=== PATIENT | female | born 1945 | race Caucasian/White ===

== ENCOUNTER 2018-04-29 15:01 | Emergency (ER) | payer MEDICARE, OTHER ==
--- NOTE | 2018-04-29 16:17 | ER Document Report ---
ED Medical Screen (RME) - General Chief Complaint: Insect Bite Stated Complaint: POSSIBLE INSECT BITE Time Seen by Provider: 04/29/18 16:09 Notes: RAPID MEDICAL EVALUATION DISCLOSURE I have seen this patient as part of a Rapid Medical Evaluation and, if applicable, placed any initially appropriate orders. The patient will be seen and fully evaluated, including a full history and physical exam, by a provider ( in Main ED or Fast Track) when a room becomes available. 73-year-old female here with complaints of skin redness to her legs and left arm ongoing for the past few days. She reports being bitten by a spider and initially the cellulitis was isolated to the right leg however it has spread to the left leg and the left arm. She believes she was bitten multiple times. These areas are draining clear discharge. She went to an urgent care facility yesterday and was prescribed Keflex and Bactrim and she was told that if it did not get better within 24 hours that she should go to an emergency department. She is here for this reason. Denies any prior history of MRSA cellulitis. Denies fevers chills. EXAM Multiple areas of mild to moderate cellulitis on the BLEs and LUE TRAVEL OUTSIDE OF THE [place] IN LAST 30 DAYS: No - Related Data Allergies/Adverse Reactions: Penicillins Allergy (Verified 04/29/18 15:02) Quinolones Allergy (Verified 04/29/18 15:02) Physical Exam - Vital signs Vitals: Temp Pulse Resp BP Pulse Ox 97.8 F 65 18 102/68 90 L 04/29/18 15:06 04/29/18 15:06 04/29/18 15:06 04/29/18 15:06 04/29/18 15:06 Course - Vital Signs Vital signs: Temp Pulse Resp BP Pulse Ox 97.8 F 65 18 102/68 90 L 04/29/18 15:06 04/29/18 15:06 04/29/18 15:06 04/29/18 15:06 04/29/18 15:06
[2018-04-29] MEDS ORDERED: CLINDAMYCIN 600 MG/D5W RTU 600 MG/50 ML RTUPB IV ONE (16:38)
--- NOTE | 2018-04-29 16:41 | ER Document Report ---
ED Skin Rash/Insect Bite/Abscs - General Chief Complaint: Insect Bite Stated Complaint: POSSIBLE INSECT BITE Time Seen by Provider: 04/29/18 16:09 Notes: Patient is a 73-year-old female who presents with diffuse erythematous rash on bilateral lower extremities and her left elbow. She went to urgent care yesterday and was started on Keflex and Bactrim after she was bitten by multiple spiders that she saw and killed. The rash is pruritic and she has taken Benadryl twice to help with the itchiness. Patient denies fevers, numbness, tingling, difficulty breathing or sores in her mouth. TRAVEL OUTSIDE OF THE [place] IN LAST 30 DAYS: No - Related Data Allergies/Adverse Reactions: Penicillins Allergy (Verified 04/29/18 15:02) Quinolones Allergy (Verified 04/29/18 15:02) Past Medical History - General Information source: Patient - Social History Smoking Status: Current Every Day Smoker Frequency of alcohol use: None Drug Abuse: None Family History: Reviewed & Not Pertinent Patient has suicidal ideation: No Patient has homicidal ideation: No Renal/ Medical History: Denies: Hx Peritoneal Dialysis Review of Systems - Review of Systems Notes: REVIEW OF SYSTEMS: CONSTITUTIONAL: -fevers, -chills EENT: -eye pain, -difficulty swallowing, -nasal congestion CARDIOVASCULAR: -chest pain, -syncope. RESPIRATORY: -cough, -SOB GASTROINTESTINAL: -abdominal pain, -nausea, -vomiting, -diarrhea GENITOURINARY: -dysuria, -hematuria MUSCULOSKELETAL: -back pain, -neck pain SKIN: +rash HEMATOLOGIC: -easy bruising or bleeding. LYMPHATIC: -swollen, enlarged glands. NEUROLOGICAL: -altered mental status or loss of consciousness, -headache, - neurologic symptoms PSYCHIATRIC: -anxiety, -depression. ALL OTHER SYSTEMS REVIEWED AND NEGATIVE. Physical Exam - Vital signs Vitals: Temp Pulse Resp BP Pulse Ox 97.8 F 65 18 102/68 90 L 04/29/18 15:06 04/29/18 15:04/29/18 15:04/29/18 15:04/29/18 15:06 - Notes Notes: PHYSICAL EXAMINATION: GENERAL: Well-appearing, well-nourished and in no acute distress. HEAD: Atraumatic, normocephalic. EYES: Pupils equal round and reactive to light, extraocular movements intact, sclera anicteric, conjunctiva are normal. ENT: nares patent, oropharynx clear without exudates. Moist mucous membranes. NECK: Normal range of motion, supple without lymphadenopathy LUNGS: Breath sounds clear to auscultation bilaterally and equal. No wheezes rales or rhonchi. HEART: Regular rate and rhythm without murmurs ABDOMEN: Soft, nontender, normoactive bowel sounds. No guarding, no rebound. No masses appreciated. EXTREMITIES: Normal range of motion, no pitting or edema. No cyanosis. NEUROLOGICAL: Cranial nerves grossly intact. Normal speech, normal gait. Normal sensory and motor exams. PSYCH: Normal mood, normal affect. SKIN: Multiple discrete erythematous areas over right lower extremity, small blister over right medial ankle. Course - Re-evaluation Re-evalutation: Pt with redness of her right lower leg after multiple spider bites that she saw. Some do appear to be worsening, despite Bactrim and Keflex. Will switch her to clindamycin. The wounds were demarcated and she understands strict return precautions. She is afebrile and has a normal WBC. No signs of necrotizing fasciitis or abscess at this time. Given very strict return precautions and she understands. - Vital Signs Vital signs: Temp Pulse Resp BP Pulse Ox 97.9 F 68 16 173/78 H 92 04/29/18 20:09 04/29/18 20:09 04/29/18 20:09 04/29/18 20:09 04/29/18 20:09 - Laboratory Result Diagrams: 04/29/18 16:45 04/29/18 16:45 Laboratory results interpreted by me: 04/29/18 04/29/18 16:45 16:45 Plt Count 138 L Eosinophils % 7.6 H BUN 34 H Discharge - Discharge Clinical Impression: Rash Cellulitis Qualifiers: Site of cellulitis: extremity Site of cellulitis of extremity: lower extremity Laterality: unspecified laterality Qualified Code(s): L03.119 - Cellulitis of unspecified part of limb Insect bite Qualifiers: Encounter type: initial encounter Qualified Code(s): W57.XXXA - Bitten or stung by nonvenomous insect and other nonvenomous arthropods, initial encounter Condition: Stable Disposition: HOME, SELF-CARE Additional Instructions: CELLULITIS: You have an infection of your skin and underlying soft tissues called cellulitis. This is due to bacteria, which can enter through any break in the skin, or even through an irritated hair follicle. Untreated, cellulitis will usually worsen. Antibiotics are required. Usually, warm packs or warm soaks, and elevation of the infected area are recommended. You should start getting better within 24 to 36 hours. Most infections respond quickly to the right medication. Follow-up care is important, however, to check for abscess (boil) formation, unsuspected foreign body, or resistant infection. If you develop fever, chills, or if the area of infection is becoming rapidly more swollen or painful, call the doctor at once. ANTIBIOTIC THERAPY: You have been given an antibiotic prescription. It's important that you take all the medication, unless instructed otherwise by your physician. Failure to complete the entire course can result in relapse of your condition. Common side effects of antibiotics include nausea, intestinal cramping, or diarrhea. Women may develop vaginal yeast infections, and babies can get yeast (thrush) in the mouth following the use of antibiotics. Contact your physician if you develop significant side effects from this medication. Allergy to this antibiotic can result in hives, wheezing, faintness, or itching. If symptoms of allergy occur, stop the medication and call the doctor. CLINDAMYCIN: You have been given a prescription for the antibiotic clindamycin. It is often prescribed for infections in the mouth, such as dental infections or abscesses, and for skin infections due to MRSA. It's important that you take all the medication, unless instructed otherwise by your physician. Failure to complete the entire course can result in relapse of your condition. Common side effects of antibiotics include nausea, intestinal cramping, or diarrhea. Women may develop vaginal yeast infections, and babies can get yeast (thrush) in the mouth following the use of antibiotics. Contact your physician if you develop significant side effects from this medication. Allergy to this antibiotic can result in hives, wheezing, faintness, or itching. If symptoms of allergy occur, stop the medication and call the doctor. FOLLOW-UP CARE: If you have been referred to a physician for follow-up care, call the physician s office for an appointment as you were instructed or within the next two days. If you experience worsening or a significant change in your symptoms, notify the physician immediately or return to the Emergency Department at any time for re-evaluation. Prescriptions: Clindamycin HCl 300 mg PO Q8H 7 Days capsule Referrals: ALANNA HANSEN NP-C [Primary Care Provider] - Follow up as needed
[2018-04-29 17:04] LABS: ABSOLUTE EOSINOPHILS # (AUTO) 0.5 10^3/uL (0.0-0.6); ABSOLUTE LYMPHOCYTES (AUTO) 2.1 10^3/uL (0.5-4.7); ABSOLUTE MONOCYTES (AUTO) 0.4 10^3/uL (0.1-1.4); ABSOLUTE NEUT (AUTO) 3.6 10^3/uL (1.7-8.2); BASOPHILS % (AUTO) 0.6 % (0-2); EOSINOPHILS % (AUTO) 7.6 % (0-6); HEMATOCRIT 43.1 % (36.0-47.0); HEMOGLOBIN 14.6 g/dL (12.0-15.5); LYMPHOCYTES % (AUTO) 31.6 % (13-45); MEAN CORPUSCULAR HEMOGLOBIN 31.9 pg (27.0-33.4); MEAN CORPUSCULAR HGB CONC 33.9 g/dL (32.0-36.0); MEAN CORPUSCULAR VOLUME 94 fl (80-97); MONOCYTES % (AUTO) 6.6 % (3-13); PLATELET COUNT 138 10^3/uL (150-450); RED BLOOD COUNT 4.58 10^6/uL (3.72-5.28); RED CELL DISTRIBUTION WIDTH 13.7 % (11.5-14.0); SEGMENTED NEUTROPHILS % (AUTO) 53.6 % (42-78); TOTAL CELLS COUNTED % (AUTO) 100 %; WHITE BLOOD COUNT 6.7 10^3/uL (4.0-10.5)
[2018-04-29 17:28] LABS: ANION GAP 10 (5-19); BLOOD UREA NITROGEN 34 mg/dL (7-20); CARBON DIOXIDE 28 mmol/L (22-30); CHLORIDE 107 mmol/L (98-107); GLUCOSE 90 mg/dL (75-110); POTASSIUM 3.8 mmol/L (3.6-5.0); SODIUM 144.9 mmol/L (137-145)
[2018-04-29 20:12] VITALS: BP 173/78
== END 2018-04-29 20:12 | disposition home or self-care (01) ==
LOC: ER 15:01
DX: L03.119 Cellulitis of unspecified part of limb (principal); R21 Rash and other nonspecific skin eruption; W57.XXXA Bitten or stung by nonvenomous insect and other nonvenomous arthropods, initial encounter; F17.200 Nicotine dependence, unspecified, uncomplicated
CPT/HCPCS: 36415; 80048; 85025; 87040; 96365; 99283

== ENCOUNTER → 2018-05-23 | Outpatient (CLI) | payer MEDICARE, OTHER ==
--- NOTE | 2018-05-23 14:55 | XCELERA REPORT ---
[address] [address] Lower Extremity Arterial Evaluation Name: PUSHPA HAYNES Age: 73 yrs Gender: Female : 1945 Patient Status: Outpatient Patient Location: Study Date: 05/23/2018 10:33 AM Procedure: A color flow and duplex scan of the lower extremity arteries was performed bilaterally with velocity and waveform anaylsis. Ankle brachial indicies performed. 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 0 % stenosis. Ankle Brachial index is 1.07. Left Side Arterial Evaluation Normal velocity and triphasic waveforms noted from the Common Femoral artery to the Posterior Tibial . Biphasic with maintained velocity in the Anterior Tibial artery. 0-15 % stenosis in the Anterior Tibial artery. Ankle Brachial index is 1.06. Interpretation Summary No hemodynamically significant lesions in the right lower extremity only, on duplex imaging, at rest. Mild hemodynamically significant lesions in the left lower extremity only, on duplex imaging, at rest. : DEJA MONTIEL > Deja Montiel
== END ==
LOC: SP 09:37
PROVIDERS: ATTEND Surgery
DX: R09.89 Other specified symptoms and signs involving the circulatory and respiratory systems (principal); L98.499 Non-pressure chronic ulcer of skin of other sites with unspecified severity
CPT/HCPCS: 93925

== ENCOUNTER 2018-08-06 14:22 | Emergency (ER) | payer MEDICARE, OTHER ==
--- NOTE | 2018-08-06 15:09 | ER Document Report ---
ED Medical Screen (RME) - General Chief Complaint: Shortness Of Breath Stated Complaint: LEGS SWELLING Time Seen by Provider: 08/06/18 14:53 Notes: 73-year-old female to the emergency department chief complaint of left leg swelling, left leg pain. Also complaining of not feeling well. Short of breath , cough, wheeze. 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 Does smoke. Had knee surgery done approximately a year ago and has had intermittent swelling in the leg since that time. Generally having some chills and aches as well. I have greeted and performed a rapid initial assessment of this patient. A comprehensive ED assessment and evaluation of the patient, analysis of test results and completion of the medical decision making process will be conducted by additional ED providers. TRAVEL OUTSIDE OF THE [place] IN LAST 30 DAYS: No - HPI Onset: Last week Onset/Duration: Gradual, Worse - Related Data Allergies/Adverse Reactions: Penicillins Allergy (Verified 08/06/18 14:24) Quinolones Allergy (Verified 08/06/18 14:24) Past Medical History - Social History Chew tobacco use (# tins/day): No Frequency of alcohol use: None Drug Abuse: None Renal/ Medical History: Reports: Hx Peritoneal Dialysis Physical Exam - Vital signs Vitals: Temp Pulse Resp BP Pulse Ox 98.3 F 70 18 133/66 H 93 08/06/18 14:42 08/06/18 14:42 08/06/18 14:42 08/06/18 14:42 08/06/18 14:42 Course - Vital Signs Vital signs: Temp Pulse Resp BP Pulse Ox 98.3 F 70 18 133/66 H 93 08/06/18 14:42 08/06/18 14:42 08/06/18 14:42 08/06/18 14:42 08/06/18 14:42 Doctor's Discharge - Discharge Referrals: DEJA MONTIEL MD [Primary Care Provider] - Follow up as needed
--- NOTE | 2018-08-06 16:01 | RADIOLOGY REPORT (SQ) ---
EXAM DESCRIPTION: CHEST 2 VIEWS COMPLETED DATE/TIME: 08/06/2018 3:42 pm REASON FOR STUDY: sob COMPARISON: None. EXAM PARAMETERS: NUMBER OF VIEWS: two views TECHNIQUE: Digital Frontal and Lateral radiographic views of the chest acquired. RADIATION DOSE: NA LIMITATIONS: none FINDINGS: LUNGS AND PLEURA: No opacities, masses or pneumothorax. No pleural effusion. MEDIASTINUM AND HILAR STRUCTURES: No masses or contour abnormalities. HEART AND VASCULAR STRUCTURES: Heart normal size. No evidence for failure. BONES: 50% chronic appearing compression deformity at T12 HARDWARE: There is an abdominal aortic stent graft in the bottom edge of the field of view OTHER: No other significant finding. IMPRESSION: NO ACUTE RADIOGRAPHIC FINDING IN THE CHEST. TECHNICAL DOCUMENTATION: JOB ID: [id number] [employer]- All Rights Reserved Reading location - IP/workstation name: [email or web address]
[2018-08-06 16:44] LABS: ABSOLUTE EOSINOPHILS # (AUTO) 0.3 10^3/uL (0.0-0.6); ABSOLUTE LYMPHOCYTES (AUTO) 1.5 10^3/uL (0.5-4.7); ABSOLUTE MONOCYTES (AUTO) 0.5 10^3/uL (0.1-1.4); ABSOLUTE NEUT (AUTO) 2.8 10^3/uL (1.7-8.2); BASOPHILS % (AUTO) 0.8 % (0-2); EOSINOPHILS % (AUTO) 5.3 % (0-6); HEMATOCRIT 39.7 % (36.0-47.0); HEMOGLOBIN 13.8 g/dL (12.0-15.5); LYMPHOCYTES % (AUTO) 29.4 % (13-45); MEAN CORPUSCULAR HEMOGLOBIN 33.3 pg (27.0-33.4); MEAN CORPUSCULAR HGB CONC 34.6 g/dL (32.0-36.0); MEAN CORPUSCULAR VOLUME 96 fl (80-97); MONOCYTES % (AUTO) 9.1 % (3-13); PLATELET COUNT 142 10^3/uL (150-450); RED BLOOD COUNT 4.13 10^6/uL (3.72-5.28); RED CELL DISTRIBUTION WIDTH 12.8 % (11.5-14.0); SEGMENTED NEUTROPHILS % (AUTO) 55.4 % (42-78); TOTAL CELLS COUNTED % (AUTO) 100 %; WHITE BLOOD COUNT 5.1 10^3/uL (4.0-10.5)
[2018-08-06 16:50] LABS: INTERNATIONAL RATION (INR) 0.94; PARTIAL THROMBOPLASTIN TIME 30.9 SEC (23.5-35.8); PROTHROMBIN TIME 13.1 SEC (11.4-15.4)
[2018-08-06 17:37] LABS: ALANINE AMINOTRANSFERASE 26 U/L (9-52); ALBUMIN 3.2 g/dL (3.5-5.0); ALKALINE PHOSPHATASE 97 U/L (38-126); ASPARTATE AMINO TRANSFERASE 25 U/L (14-36); BILIRUBIN,DIRECT 0.5 mg/dL (0.0-0.4); BILIRUBIN,TOTAL 0.6 mg/dL (0.2-1.3); BLOOD UREA NITROGEN 18 mg/dL (7-20); CALCIUM 9.4 mg/dL (8.4-10.2); CREATINE KINASE 32 U/L (30-135); GLUCOSE 103 mg/dL (75-110); POTASSIUM 4.2 mmol/L (3.6-5.0); TOTAL PROTEIN 6.5 g/dL (6.3-8.2)
[2018-08-06 17:49] LABS: CREATINE KINASE MB 2.47 ng/mL (<4.55); TROPONIN I 0.012 ng/mL
[2018-08-06 17:57] LABS: ANION GAP 6 (5-19); CARBON DIOXIDE 30 mmol/L (22-30); CHLORIDE 104 mmol/L (98-107); SODIUM 139.5 mmol/L (137-145)
[2018-08-06 18:32] LABS: APPEARANCE,URINE CLEAR; BILIRUBIN,URINE NEGATIVE (NEGATIVE); COLOR,URINE YELLOW; GLUCOSE, URINE NEGATIVE (NEGATIVE); KETONES,URINE NEGATIVE (NEGATIVE); LEUKOCYTE ESTERASE,URINE NEGATIVE (NEGATIVE); NITRITE,URINE NEGATIVE (NEGATIVE); PROTEIN,URINE NEGATIVE (NEGATIVE); URINE SPECIFIC GRAVITY 1.013
[2018-08-06] MEDS ORDERED: HYDROCHLOROTHIAZIDE 25 MG TABLET PO ONE (19:05)
--- NOTE | 2018-08-06 19:11 | ER Document Report ---
ED General - General Chief Complaint: Leg Swelling Stated Complaint: LEGS SWELLING Time Seen by Provider: 08/06/18 14:53 Notes: Patient is a 73 year old female with a past medical history of hypertension who presents with swelling to her left leg that has become more pronounced in the past 1 week. The patient relays a history of long-standing swelling to the left lower extremity ever since she had a knee replacement on the left side. She states however the past week it has been more prominent than normal. She notes an associated dull, throbbing, constant pain to the area of the leg below the knee. Nothing seems to improve or worsening swelling or pain. She does state that when she places a compression stocking the swelling goes down but states "it comes right back". She has not seen her general doctor regarding today's concerns. No recent medication changes. Contrary to triage assessment the patient to be denies shortness of breath, states it is much more about her left leg swelling that prompted her to the emergency department. TRAVEL OUTSIDE OF THE [place] IN LAST 30 DAYS: No - Related Data Allergies/Adverse Reactions: Penicillins Allergy (Verified 08/06/18 14:24) Quinolones Allergy (Verified 08/06/18 14:24) Past Medical History - General Information source: Patient - Social History Smoking Status: Current Every Day Smoker Cigarette use (# per day): Yes - Half pack per day Chew tobacco use (# tins/day): No Smoking Education Provided: Yes - Smoking cessation counseling was provided for 4 minutes at the bedside Frequency of alcohol use: None Drug Abuse: None Lives with: Family Family History: Reviewed & Not Pertinent Patient has suicidal ideation: No Patient has homicidal ideation: No Renal/ Medical History: Reports: Hx Peritoneal Dialysis Review of Systems - Review of Systems Notes: Constitutional: Negative for fever. HENT: Positive for sore throat. Eyes: Negative for visual changes. Cardiovascular: Negative for chest pain. Respiratory: Positive for cough Gastrointestinal: Negative for abdominal pain, vomiting or diarrhea. Genitourinary: Negative for dysuria. Musculoskeletal: Positive for left lower extremity swelling Skin: Negative for rash. Neurological: Negative for headaches, weakness or numbness. 10 point ROS negative except as marked above and in HPI. Physical Exam - Vital signs Vitals: Temp Pulse Resp BP Pulse Ox 98.3 F 70 18 133/66 H 93 08/06/18 14:42 08/06/18 14:42 08/06/18 14:42 08/06/18 14:42 08/06/18 14:42 Interpretation: Normal Notes: PHYSICAL EXAMINATION: GENERAL: Well-appearing, well-nourished and in no acute distress. HEAD: Atraumatic, normocephalic. EYES: Pupils equal round and reactive to light, extraocular movements intact, sclera anicteric, conjunctiva are normal. ENT: nares patent, oropharynx clear without exudates. Moist mucous membranes. Nasal congestion. NECK: Normal range of motion, supple without lymphadenopathy LUNGS: Breath sounds clear to auscultation bilaterally and equal. No wheezes rales or rhonchi. HEART: Regular rate and rhythm without murmurs ABDOMEN: Soft, nontender, normoactive bowel sounds. No guarding, no rebound. No masses appreciated. EXTREMITIES: Normal range of motion, 3+ pitting edema in the left lower externally, 1+ in the right NEUROLOGICAL: No focal neurological deficits. Moves all extremities spontaneously and on command. PSYCH: Normal mood, normal affect. SKIN: Warm, Dry, normal turgor, no rashes or lesions noted. Course - Re-evaluation Re-evalutation: 08/06/18 19:09 Patient presents with 1 week of worsening left lower extremity swelling although notes that the swelling is chronic. She states that the swelling became a persistent problem after she had knee surgery and stripping of several veins to the left lower extremity. Her findings and exam are most consistent with chronic stasis dermatitis with associated chronic venous insufficiency. I have instructed her to continue to wear compression stocking to the side. A venous Doppler ultrasound obtained in triage has been informally read by the tech as not demonstrating a DVT. I do not clinically suspect this either given the chronic nature of her symptoms as well as the physical examination. The patient has also complained of nasal congestion, cough, runny eyes and feeling like she has come down with a cold. Her chest x-ray is normal without any evidence of an acute infiltrate. She is not hypoxic nor tachypneic. Labs unremarkable without evidence of an elevated BNP and again chest x-ray does not show any vascular congestion or pulmonary edema. Clinical history is not consistent with an acute pulmonary embolus or ACS. Suspect most likely a bronchitis. Patient does also have quite elevated blood pressure. She was apparently taken off of some of her blood pressure medication several months ago due to concerns that they were lowering her blood pressure too far. Given the degree of the blood pressure elevation, the patient has been started on hydrochlorothiazide. At this time will discharge with return precautions and follow-up recommendations. Verbal discharge instructions given a the bedside and opportunity for questions given. Medication warnings reviewed. Patient is in agreement with this plan and has verbalized understanding of return precautions and the need for primary care follow-up in the next 24-72 hours. - Vital Signs Vital signs: Temp Pulse Resp BP Pulse Ox 98.7 F 70 19 190/102 H 93 08/06/18 19:30 08/06/18 14:42 08/06/18 19:30 08/06/18 19:30 08/06/18 19:30 - Laboratory Result Diagrams: 08/06/18 16:23 08/06/18 16:23 Laboratory results interpreted by me: 08/06/18 08/06/18 08/06/18 16:23 16:23 18:17 Plt Count 142 L Direct Bilirubin 0.5 H Albumin 3.2 L Urine Urobilinogen 4.0 H - Diagnostic Test Radiology reviewed: Image reviewed, Reports reviewed Radiology results interpreted by me: 08/06/18 19:08 CXR: No acute infiltrate or edema. - EKG Interpretation by Me Additional EKG results interpreted by me: 08/06/18 19:08 [address] 70[address] No ST elevations or depressions. Qtc 409. Discharge - Discharge Clinical Impression: Left leg swelling, Chronic venous insufficiency, Essential hypertension, Bronchitis Condition: Good Disposition: HOME, SELF-CARE Additional Instructions: Please wear compression stockings on your left leg throughout the day to help reduce the swelling. The swelling in her leg is due to chronic venous insufficiency likely related to your prior orthopedic surgeries. Your cough and congestion is most consistent with bronchitis. This can take up to 12 weeks to fully resolve. This is generally due to a viral infection. Please follow-up with your primary doctor in the next 2-3 days. Return if you develop worsening cough, vomiting, fever >100.4, pass out, begin coughing blood, or have any other symptoms that are concerning to you. You have also been started on hydrochlorothiazide to help control your blood pressure. Please take as directed. Prescriptions: Hydrochlorothiazide 25 mg PO DAILY #30 tablet Referrals: DEJA MONTIEL MD [Primary Care Provider] - Follow up as needed
[2018-08-06 19:37] VITALS: BP 190/102
--- NOTE | 2018-08-06 20:07 | EKG REPORT ---
SEVERITY:- ABNORMAL ECG - SINUS RHYTHM FIRST DEGREE AV BLOCK : Confirmed by: Tamera Amaya MD 06-Aug-2018 20:06:26
--- NOTE | 2018-08-07 08:05 | RADIOLOGY REPORT (SQ) ---
EXAM DESCRIPTION: VENOUS UNILATERAL LOWER COMPLETED DATE/TIME: 08/06/2018 9:13 pm REASON FOR STUDY: pain left leg with swelling COMPARISON: None. TECHNIQUE: Dynamic and static polanco scale and color images acquired of the left leg venous system. Se lected spectral images acquired with additional compression and augmentation maneuvers. The contralat eral common femoral vein and saphenofemoral junction were also imaged. Images stored on PACS. LIMITATIONS: None. FINDINGS: COMMON FEMORAL: Normal phasicity, compression and augmentation. No visualized echogenic ma terial on polanco scale. No defects on color images. FEMORAL: Normal compression and augmentation. No visualized echogenic material on polanco scale. No defe cts on color images. POPLITEAL: Normal compression, augmentation. No visualized echogenic material on polanco scale. No defec ts on color images. CALF VESSELS: Normal compression, augmentation. No visualized echogenic material on polanco scale. No de fects on color images. GSV and SSV: Normal compression, augmentation. No visualized echogenic material on polanco scale. No def ects on color images. ANY DEEP VENOUS INSUFFICIENCY: Not evaluated. ANY EVIDENCE OF POPLITEAL CYST: No. OTHER: No other significant finding. CONTRALATERAL COMMON FEMORAL VEIN AND SAPHENOFEMORAL JUNCTION: Normal phasicity, compression and augmentation. No visualized echogenic material on polanco scale. No de fects on color images. IMPRESSION: NO EVIDENCE DVT OR SVT IN THE LEFT LEG. TECHNICAL DOCUMENTATION: JOB ID: [id number] [employer]- All Rights Reserved Reading location - IP/workstation name: [email or web address]
== END 2018-08-06 19:37 | disposition home or self-care (01) ==
LOC: ER 14:22
DX: I87.2 Venous insufficiency (chronic) (peripheral) (principal); J40 Bronchitis, not specified as acute or chronic; M79.89 Other specified soft tissue disorders; F17.210 Nicotine dependence, cigarettes, uncomplicated; I10 Essential (primary) hypertension
CPT/HCPCS: 36415; 71046; 80053; 81001; 82550; 82553; 83880; 84484; 85025; 85610; 85730; 93005; 93010; 93971; 99284; 99406